=== PATIENT | female | born 2000 | race African-American/Black ===

== ENCOUNTER 2019-08-28 09:59 | Emergency (ER) | payer MEDICAID ==
[2019-08-28 10:23] LABS: #Lymphocytes 2.1 thou/uL (1.20-3.40); #Monocytes 0.7 thou/uL (0.11-0.59); %Lymphocytes 43.8 % (28.0-48.0); %Monocytes 13.7 % (0.0-4.0); %Neutrophils 40.6 % (31.0-61.0); Hemoglobin 12.4 g/dL (12.0-16.0); Mean Corpuscular HGB CONC 32.7 g/dL (32.0-36.0); Mean Corpuscular Hemoglobin 28.6 pg (25.0-35.0); Mean Corpuscular Volume 87.4 fL (78.0-98.0); Mean Platelet Volume 8.1 fL (7.4-10.4); Platelet Count 302 thou/uL (130-400); Red Blood Cell (RBC) Count 4.34 mill/uL (4.00-5.20); White Blood Cell (WBC) Count 4.9 thou/uL (4.8-10.8)
[2019-08-28 10:42] LABS: ALT (SGPT) 25 U/L (8-55); AST (SGOT) 22 U/L (5-34); Albumin 3.9 g/dL (3.5-5.0); Alkaline Phosphatase 73 U/L (40-100); Anion Gap 7 mmol/L (10-20); BUN (Urea Nitrogen) 11 mg/dL (7.0-18.7); Bilirubin, Total Less than 0.2 mg/dL (0.2-1.2); Calc. Creatinine Clearance 0 mL/min (70-130); Calcium 8.8 mg/dL (7.8-10.44); Carbon Dioxide 25 mmol/L (22-29); Chloride 105 mmol/L (98-107); Estimated GFR-MDRD Greater than 90; Globulin 3.5 g/dL (2.4-3.5); Glucose 92 mg/dL (70-105); Lipase 87 U/L (8-78); Protein, Total 7.4 g/dL (6.0-8.3); Sodium 133 mmol/L (136-145)
[2019-08-28 12:41] LABS: Bilirubin Negative (Negative); Blood, Urine Negative (Negative); Clarity Clear (Clear); Glucose, Urine (Dipstick) Normal (Negative); Leukocyte Negative Leu/uL (Negative); Nitrite Negative (Negative); Protein, Urine (Dipstick) Negative (Neg-Trace); Urobilinogen Normal mg/dL (Less than 2)
[2019-08-28 12:43] LABS: Pregnancy Test - Urine (BHCG) Negative (Negative); Pregu Control Background? CLEAR/WHITE (CLR/WHITE); Pregu Control Bar Appear? YES (CONTROL BAR); Specific Gravity 1.023 (1.002-1.036)
== END 2019-08-28 13:54 | disposition home or self-care (01) ==
LOC: ERS 09:59
DX: R10.13 Epigastric pain (principal); R11.2 Nausea with vomiting, unspecified; R51 Headache
CPT/HCPCS: 36415; 80053; 81003; 81025; 83690; 85025; 99284

== ENCOUNTER 2019-10-18 16:24 | Emergency (ER) | payer MEDICAID, SELFPAY | END 2019-10-18 17:22 | disposition home or self-care (01) | LOC: ERS 16:24 | DX: L42 Pityriasis rosea (principal) | CPT/HCPCS: 99283 ==

== ENCOUNTER 2022-02-26 00:49 | Emergency (ER) | payer SELFPAY | END 2022-02-26 01:12 | disposition home or self-care (01) | LOC: ERS 00:49 | DX: O99.891 Other specified diseases and conditions complicating pregnancy (principal); R10.9 Unspecified abdominal pain; R11.0 Nausea; Z3A.01 Less than 8 weeks gestation of pregnancy | CPT/HCPCS: 99281 ==

== ENCOUNTER 2022-09-04 11:48 | Emergency (ER) | payer SELFPAY | END 2022-09-04 12:02 | disposition left against medical advice (07) | LOC: ERS 11:48 | DX: Z53.21 Procedure and treatment not carried out due to patient leaving prior to being seen by health care provider (principal) ==

== ENCOUNTER 2022-09-05 23:24 | Emergency (ER) | payer SELFPAY ==
[2022-09-05] MEDS ORDERED: Ketorolac Tromethamine 30 MG/ML VIAL ONE (23:46)
[2022-09-06] MEDS ORDERED: Lidocaine 1% MPF 2 ML VIAL ONE (00:54)
== END 2022-09-06 01:12 | disposition home or self-care (01) ==
LOC: ERS 23:24
DX: K02.9 Dental caries, unspecified (principal)
CPT/HCPCS: 96372; 99282; J1885

== ENCOUNTER 2022-11-21 19:51 | Emergency (ER) | payer SELFPAY ==
[2022-11-21] MEDS ORDERED: Ondansetron ODT 4 MG TAB ONE (20:24)
== END 2022-11-21 20:45 | disposition home or self-care (01) ==
LOC: ERS 19:51
DX: B34.9 Viral infection, unspecified (principal); Z20.822 Contact with and (suspected) exposure to COVID-19
CPT/HCPCS: 87804; 99283; Q0162; U0003; U0005

== ENCOUNTER 2022-11-30 22:56 | Emergency (ER) | payer SELFPAY ==
[2022-12-01] MEDS ORDERED: Ketorolac Tromethamine 30 MG/ML VIAL ONE (01:05)
== END 2022-12-01 01:25 | disposition home or self-care (01) ==
LOC: ERS 22:56
DX: K03.81 Cracked tooth (principal)
CPT/HCPCS: 96372; 99282; J1885

== ENCOUNTER 2022-12-01 20:17 | Emergency (ER) | payer SELFPAY | END 2022-12-01 20:39 | disposition home or self-care (01) | LOC: ERS 20:17 | DX: S83.91XA Sprain of unspecified site of right knee, initial encounter (principal); Y30.XXXA Falling, jumping or pushed from a high place, undetermined intent, initial encounter | CPT/HCPCS: 99283 ==